=== PATIENT | female | born 1985 ===

== ENCOUNTER 2022-04-02 10:06 | Emergency (ER) | payer OTHER ==
[~2022-04-02] VITALS: Ht 162.6 cm; Wt 59.0 kg
[2022-04-02] MEDS ORDERED: XANAX XR0.5 MG PO (10:31)
== END 2022-04-03 | disposition home or self-care (01) ==
LOC: ER 10:06
DX: F41.0 Panic disorder [episodic paroxysmal anxiety] (principal); Z88.0 Allergy status to penicillin